=== PATIENT | male | born 1965 | race Caucasian/White ===

== ENCOUNTER 2019-07-05 05:19 | Day surgery (SDC) | payer OTHER ==
[~2019-07-05] VITALS: Ht 175.3 cm; Wt 125.6 kg
--- NOTE | ~2019-07-05 | OP ---
PATIENT NAME: LIANNE PICKARD MEDICAL RECORD: [id number] :67 LOCATION:[facility], [facility]IN [facility] ADMISSION DATE: SURGEON: JOSE KHAN MD DATE OF OPERATION: 07/05/2019 PREOPERATIVE DIAGNOSIS: Supraclavicular lymphadenopathy. POSTOPERATIVE DIAGNOSES: Supraclavicular lymphadenopathy with an atypical lymph node, rule out lymphoma. PROCEDURE: Left supraclavicular excisional lymph node biopsy. SURGEON: Jose Khan MD HAND CARVER: ST Sandhya BLOOD LOSS: 25 cc. The risks, possible complications and alternatives to the procedure were explained to the patient. He elects to proceed. Preoperatively, I examined the patient's eleventh cranial nerve function on the left and it was normal. He had good sensation involving the left upper extremity. He could supinate and pronate at the wrist. He had an excellent hand aluminum pourer on the left. I obtained a CT of the head, neck, and chest preoperatively. I reviewed it with the radiologist. The patient does have lymphadenopathy. There is some lymphadenopathy in the mediastinum as well as in both cervical lymph node chains. The lymphadenopathy is such that there are more lymph nodes than would be expected; however, they are not pathologically enlarged except for the one lymph node that I elected to biopsy. This lymph node is in a precarious area. It is a supraclavicular lymph node. It is lateral to the jugular vein and carotid artery. It is underneath the clavicle and is very near the subclavian artery and vein. It is anterior to the brachial plexus. OPERATIVE COURSE: The patient was conveyed to the operating room electively on 07/05/2019. General anesthesia was induced by the anesthesia staff. The patient was placed in the beach chair position. The left neck and left upper chest were sterilely prepped and draped. I interrogated the supraclavicular area with the ultrasound and identified the target lymph node. An incision was accomplished at the base of the left neck. Sharp dissection was carried down through the platysma. I utilized a muscle technique to dissect down underneath the clavicle. I retracted the brachial plexus so that it was not damaged during the procedure nor was there any large vessel damaged during the procedure. I continued my blunt dissection down to the lymph node in question. This lymph node was pathologically enlarged. The hilum to the lymph node was controlled with titanium clips. I then excised the lymph node. There was very little bleeding. I then packed the fossa where the lymph node had been with Fibrillar as well as Daria. The platysma was approximated with interrupted 3-0 Vicryls. The subdermis was approximated with interrupted 3-0 Vicryls. The skin was approximated with a running intracuticular 4-0 Vicryl. A sterile dressing was applied. The patient was then extubated and conveyed to the post-anesthesia care unit OPERATIVE REPORT [id number] LIANNE PICKARD where he was in stable condition. He had excellent left cranial nerve XI function on the left. He had good power in flexion and extension at the left elbow. He could supinate and pronate at the wrist. He had an excellent hand aluminum pourer on the left. He had no paresthesias or numbness involving the left upper extremity. Frozen section examination of the lymph node revealed an atypical lymph node. It is going to be sent for multiple studies. It is worrisome for lymphoma. TRANSINT:[id number] Voice Confirmation ID: [id number] DOCUMENT ID: [id number] JOSE KHAN MD CC: [id number] DICTATION DATE: 07/05/19 1428 ORDER SCHEDULE CLERK: 07/05/19 1521 [facility] 07/05/[address] [facility] [address] [place] [address]
[2019-07-05 06:39] LABS: HEMATOCRIT 44.3 % (42.0-54.0); HEMOGLOBIN 14.2 g/dL (13.5-17.5); MCH 28.1 pg (26.0-34.0); MCHC 32.1 g/dL (31.0-37.0); MCV 87.7 fL (80.0-100.0); MEAN PLATELET VOLUME 10.1 fL (7.4-10.4); RBC 5.05 10x6/uL (4.20-6.10); RDW 14.2 % (11.5-14.5)
[2019-07-05 06:46] LABS: CALC OSMOLALITY 279 mosm/kg (275-300); CALCIUM 8.6 mg/dL (8.5-10.1); CARBON DIOXIDE 36.8 mmol/L (21.0-32.0); CHLORIDE - SERUM 101 mmol/L (98-107); CREATININE - SERUM 0.9 mg/dL (0.6-1.3); GLUCOSE 186 mg/dL (74-106); POTASSIUM - SERUM 3.8 mmol/L (3.5-5.1); SODIUM 138 mmol/L (136-145); UREA NITROGEN 11 mg/dL (7-18); eGFR NON AFRICAN AMERICAN > 90 mL/min (90-120)
[2019-07-05] MEDS ORDERED: HUMULIN R100 UNIT/1 (08:56)
[2019-07-05] MEDS ORDERED: NOVOLIN 70/30 110 ML SC (09:00)
[2019-07-05] MEDS ORDERED: ANALGESIC (09:01)
[2019-07-05] MEDS ORDERED: ADVIL200 MG PO (09:02)
[2019-07-05] MEDS ORDERED: HYDROCHLOROTHIA25 MG PO (09:02)
[2019-07-05] MEDS ORDERED: MILK OF MAGNESI30 ML PO (09:03)
[2019-07-05] MEDS ORDERED: OMEPRAZOLE20 M1 PO (09:03)
[2019-07-05] MEDS ORDERED: LIPITOR20 MG PO (09:04)
[2019-07-05] MEDS ORDERED: METOPROLOL TART50 MG PO (09:04)
[2019-07-05] MEDS ORDERED: NORVASC10 MG PO (09:05)
[2019-07-05] MEDS ORDERED: DERMAREST (09:05)
[2019-07-05] MEDS ORDERED: BAYER CHEWABLE81 MG PO (09:06)
[2019-07-05] MEDS ORDERED: ARTIFICIAL TEARS (09:06)
[2019-07-05] MEDS ORDERED: SPIRIVA RESPIMAT4 GM INH (09:07)
[2019-07-05] MEDS ORDERED: XOPENEX HFA15 GM INH (09:08)
[2019-07-05] MEDS ORDERED: CARAFATE1 G (09:10)
[2019-07-05] MEDS ORDERED: KEPPRA500 MG PO (09:11)
[2019-07-05] MEDS ORDERED: NITROSTAT0.4 MG SL (09:12)
[2019-07-05] MEDS ORDERED: NOVOLIN 70/30 110 ML (09:13)
[2019-07-05] MEDS ORDERED: GLUCOPHAGE1000 MG PO (09:14)
[2019-07-05 09:28] VITALS: BP 116/73; Ht 175.3 cm; Wt 125.6 kg
--- NOTE | 2019-07-05 14:54 | NUR ---
DR SKELTON AT BEDSIDE TO EVALUATE OXYGENATION. ORDERS RECEIVED AND IMPLEMENTED.
--- NOTE | 2019-07-05 15:33 | NUR ---
LATE ENTRY - PT DISPLAYED MULTIPLE SIGNS & SYMPTOMS OF SLEEP APNEA. WILL NOTIFY DR KHAN FOR FURTHER CONSIDERATION.
== END 2019-07-05 16:30 | disposition home or self-care (01) ==
LOC: D.OPS 05:19 → D.PAN 10:00 → D.OPS 10:00
PROVIDERS: Anesthesiology; ATTEND Surgery
DX: R59.1 Generalized enlarged lymph nodes (principal); E11.9 Type 2 diabetes mellitus without complications; Z21 Asymptomatic human immunodeficiency virus [HIV] infection status